=== PATIENT | female | born 1965 | race Caucasian/White ===

== ENCOUNTER 2017-09-26 19:57 | Emergency (ER) | payer OTHER ==
[~2017-09-26] VITALS: Ht 157.5 cm; Wt 63.6 kg
[2017-09-26 21:48] LABS: HEMATOCRIT 39.3 % (36.0-46.0); HEMOGLOBIN 13.2 G/DL (11.9-15.5); MCH 32.4 PG (29.0-34.0); MCHC 33.6 G/DL (30.0-36.0); MCV 96.6 FL (83-99); PLATELET COUNT 229 K/uL (156-360); RBC DIS.WIDTH-CV 14.3 % (11.8-14.6); RBC DIS.WIDTH-SD 49.6 % (39-53); RED BLOOD COUNT 4.07 M/uL (3.80-5.20); WHITE BLOOD COUNT 3.9 K/uL (4.1-10.2)
[2017-09-26 22:03] LABS: CHLORIDE 107 mEq/L (99-109); POTASSIUM 3.2 mEq/L (3.7-5.4); SODIUM 144 mEq/L (136-147)
[2017-09-26 22:05] LABS: GLUCOSE 123 mg/dL (70-99)
[2017-09-26 22:09] LABS: CREATININE 0.8 mg/dL (0.6-1.3); GFR ESTIMATE (CALCULATED) > 59 mL/min/; UREA NITROGEN (BUN) 16 mg/dL (9-23)
[2017-09-26 23:07] LABS: APPEARANCE SL.HAZY ((CLEAR)); BILIRUBIN NEGATIVE; BLOOD NEGATIVE; COLOR YELLOW ((YELLOW)); GLUCOSE (STRIP) NEGATIVE; KETONES NEGATIVE; LEUKOCYTES SMALL; NITRITE NEGATIVE; PROTEIN (STRIP) NEGATIVE; SPECIFIC GRAVITY 1.017 (1.000-1.030); UROBILINOGEN 0.2 MG/DL (0.2-1.0)
[2017-09-26 23:31] LABS: BACTERIA RARE /HPF; CALCIUM OXALATE CRYSTALS 3+ /HPF; EPITHELIAL CELLS RARE /HPF; MUCUS TRACE /LPF; RED BLOOD CELLS 0-5 /HPF (0-5); UCUL ADDED? YES
[2017-09-26 23:53] VITALS: BP 126/82
== END 2017-09-26 23:53 | disposition home or self-care (01) ==
LOC: EME → EDBD 19:57 → EME 23:53
PROVIDERS: Emergency Medicine
DX: R56.9 Unspecified convulsions (principal); Q90.9 Down syndrome, unspecified
CPT/HCPCS: 80048; 81003; 85027; 87086; 99281; 99284

== ENCOUNTER 2017-10-29 21:00 | Emergency (ER) | payer OTHER ==
[~2017-10-29] VITALS: Ht 149.9 cm; Wt 61.7 kg
[~2017-10-29 21:00] MED LIST: ANTI-DIARRHEA2 MG PO; CROMOLYN SODIUM10 ML BOTH EYES; DOXYCYCLINE HY100 MG PO; EFFEXOR75 MG PO; ESSENTIAL WOMA1 EAC1 PO; EXELON4.5 MG PO; FLONASE SENSIM9.9 ML BOTH NARES; LIPITOR20 MG PO; MELATONIN10 M1 PO; NIZORAL 2% CREA15 GM TP; OYSTER SHELL C1 EA16 PO; PHENOBARBITAL64.8 MG PO; SUDAFED 12-HOU120 MG PO; SYNTHROID125 MCG PO; TYLENOL REGULA325 MG PO; VITAMIN D2000 UNIT PO
[2017-10-29 21:43] LABS: HEMATOCRIT 38.6 % (36.0-46.0); HEMOGLOBIN 12.9 G/DL (11.9-15.5); MCH 33.2 PG (29.0-34.0); MCHC 33.4 G/DL (30.0-36.0); MCV 99.2 FL (83-99); PLATELET COUNT 148 K/uL (156-360); RBC DIS.WIDTH-CV 15.8 % (11.8-14.6); RBC DIS.WIDTH-SD 57.6 % (39-53); RED BLOOD COUNT 3.89 M/uL (3.80-5.20); WHITE BLOOD COUNT 2.8 K/uL (4.1-10.2)
[2017-10-29 22:03] LABS: CHLORIDE 105 mEq/L (99-109); POTASSIUM 3.9 mEq/L (3.7-5.4); SODIUM 139 mEq/L (136-147)
[2017-10-29 22:04] LABS: GLUCOSE 97 mg/dL (70-99)
[2017-10-29 22:08] LABS: CREATININE 0.9 mg/dL (0.6-1.3); GFR ESTIMATE (CALCULATED) > 59 mL/min/
[2017-10-29 22:09] LABS: UREA NITROGEN (BUN) 19 mg/dL (9-23)
[2017-10-29 22:35] LABS: PHENOBARBITAL 36.8 MCG/ML (15-40)
[2017-10-30 01:15] VITALS: BP 118/63
== END 2017-10-30 01:18 | disposition home or self-care (01) ==
LOC: EME → EDBD 21:00 → EME 21:00
PROVIDERS: Emergency Medicine Emergency Medical Services
DX: G40.909 Epilepsy, unspecified, not intractable, without status epilepticus (principal); R41.82 Altered mental status, unspecified; F03.90 Unspecified dementia, unspecified severity, without behavioral disturbance, psychotic disturbance, mood disturbance, and anxiety; Q90.9 Down syndrome, unspecified
CPT/HCPCS: 80048; 80184; 85027; 99281; 99285